=== PATIENT | female | born 1960 | race Caucasian/White ===

== ENCOUNTER 2021-06-16 06:13 | Inpatient (IN) ==
[2021-06-16] MEDS ORDERED: Ringers Solution, Lactated 1,000 ML IVC SCH (06:30)
[2021-06-16] MEDS ORDERED: *HR* Propofol 200 MG/20 ML VIAL IVP ONE (07:18)
[2021-06-16] MEDS ORDERED: *HR* FentaNYL (PF) 100 MCG/2 ML VIAL ONE ×3 (07:18→09:36)
[2021-06-16] MEDS ORDERED: *HR* Midazolam HCl 2 MG/2 ML VIAL ONE (07:18)
[2021-06-16] MEDS ORDERED: Ondansetron 4 MG/2 ML VIAL ONE (07:19)
[2021-06-16] MEDS ORDERED: *HR* Succinylcholine 200 MG/10 ML VIAL IVP ONE (07:19)
[2021-06-16] MEDS ORDERED: Lidocaine -MPF 2% 2 ML VIAL ONE (07:19)
[2021-06-16] MEDS ORDERED: *HR* Rocuronium Bromide 50 MG/5 ML VIAL ONE (07:19)
[2021-06-16] MEDS ORDERED: Lidocaine HCL 4 ML Topical Solution (Laryng-O-Jet Kit Sterile Pak) TP ONE (07:19)
[2021-06-16] MEDS ORDERED: Lidocaine/EPI 1:100k 1% 30 ML VIAL ONE (07:56)
[2021-06-16] MEDS ORDERED: Albuterol 2.5 MG/3 ML NEBULIZER IH PRN (08:03)
[2021-06-16] MEDS ORDERED: Clindamycin 900 MG/50 ML 900 MG/50 ML IV.SOLN IVPB ONE (08:03)
[2021-06-16] MEDS ORDERED: Ondansetron 4 MG/2 ML VIAL IVP PRN (08:12)
[2021-06-16] MEDS ORDERED: *HR* OxyCODONE Immed Rel 5 MG TABLET PO PRN (08:12)
[2021-06-16] MEDS ORDERED: Acetaminophen IV 1,000 MG/100 ML BAG IVPB ONE (09:13)
[2021-06-16] MEDS ORDERED: Ketorolac 30 MG/ML VIAL ONE (10:06)
[2021-06-16] MEDS: *HR* HYDROmorphone PF 0.5 MG/0.5 ML SYRINGE IVP PRN ×2 (10:57→11:11)
[2021-06-16] MEDS ORDERED: *HR* OxyCODONE Immed Rel 5 MG TABLET PO ONE (16:43)
[2021-06-16] MEDS ORDERED: Ibuprofen 400 MG TABLET PO PRN (22:50)
[2021-06-17] MEDS ORDERED: *HR* OxyCODONE Immed Rel 5 MG TABLET PO ONE (03:21)
[2021-06-17] MEDS ORDERED: Acetaminophen 325 MG TABLET PO PRN (07:58)
[2021-06-17] MEDS ORDERED: Ondansetron 4 MG/2 ML VIAL IVP PRN (07:58)
[2021-06-17] MEDS ORDERED: Ibuprofen 400 MG TABLET PO PRN (07:58)
[2021-06-17] MEDS ORDERED: Naloxone 0.4 MG/ML INJ IVP PRN (07:58)
[2021-06-17] MEDS ORDERED: *HR* OxyCODONE Immed Rel 5 MG TABLET PO PRN ×2 (07:58→10:08)
[2021-06-17] MEDS ORDERED: Lidocaine -MPF 2% 2 ML VIAL ONE (09:43)
[2021-06-17] MEDS ORDERED: Ondansetron 4 MG/2 ML VIAL ONE (09:43)
[2021-06-17] MEDS ORDERED: *HR* Propofol 200 MG/20 ML VIAL IVP ONE ×2 (09:43→11:35)
[2021-06-17] MEDS: Celecoxib 200 MG CAPSULE PO SCH (09:43)
[2021-06-17] MEDS ORDERED: *HR* Midazolam HCl 2 MG/2 ML VIAL ONE (09:43)
[2021-06-17] MEDS ORDERED: *HR* FentaNYL (PF) 100 MCG/2 ML VIAL ONE (09:43)
[2021-06-17] MEDS ORDERED: *HR* Succinylcholine 200 MG/10 ML VIAL IVP ONE (09:43)
[2021-06-17] MEDS: Fluticasone Propionate Nasal 50 MCG/SPRAY BOTTLE NS SCH (09:43)
[2021-06-17] MEDS ORDERED: *HR* HYDROmorphone PF 0.5 MG/0.5 ML SYRINGE IVP PRN (10:08)
[2021-06-17] MEDS ORDERED: Lidocaine/EPI 1:100k 1% 30 ML VIAL ONE (10:28)
[2021-06-17] MEDS ORDERED: Ketamine HCL *QUVA* 50mg (1mL) SYRINGE ONE (11:11)
[2021-06-17] MEDS ORDERED: EPHEDrine 50 MG/ML VIAL ONE (11:34)
[2021-06-17] MEDS ORDERED: *HR* HYDROMORPHONE 2 MG/ML VIAL ONE (12:30)
[2021-06-17] MEDS ORDERED: ceFAZolin 1,000 MG in 0.9 % Sodium Chloride 10 ML IVP SCH (19:00)
[2021-06-17] MEDS: ceFAZolin 1,000 MG in 0.9 % Sodium Chloride 10 ML IVP SCH (23:30)
[2021-06-18] MEDS: ceFAZolin 1,000 MG in 0.9 % Sodium Chloride 10 ML IVP SCH (06:35)
[2021-06-18 07:43] VITALS: TEMP 98.4
[2021-06-18] MEDS: Celecoxib 200 MG CAPSULE PO SCH (07:43)
[2021-06-18] MEDS: Fluticasone Propionate Nasal 50 MCG/SPRAY BOTTLE NS SCH (07:44)
[2021-06-18 10:15] VITALS: BP 96/60; PULSE 71; O2SAT 93
== END 2021-06-18 12:25 | disposition home or self-care (01) | DRG 982 ==
LOC: SAMDAY 06:13 → 2NNU 20:12
PROVIDERS: ADMIT Otolaryngology; ATTEND Otolaryngology